=== PATIENT | female | born 1960 | race African-American/Black ===

== ENCOUNTER → 2018-08-05 | Outpatient (CLI) | payer BC | LOC: M.RAD 09:25 | DX: Z12.31 Encounter for screening mammogram for malignant neoplasm of breast (principal) ==

== ENCOUNTER → 2020-04-10 | Outpatient (CLI) | payer OTHER | LOC: M.RAD 13:20 | DX: Z12.31 Encounter for screening mammogram for malignant neoplasm of breast (principal); Z00.00 Encounter for general adult medical examination without abnormal findings; M25.562 Pain in left knee ==

== ENCOUNTER → 2021-04-10 | Outpatient (CLI) | payer OTHER | LOC: M.RAD 10:07 | PROVIDERS: ATTEND Family Medicine | DX: Z12.31 Encounter for screening mammogram for malignant neoplasm of breast (principal) ==